=== PATIENT | female | born 1960 | race Caucasian/White ===

== ENCOUNTER 2016-03-19 18:10 | Emergency (ER) | payer SELFPAY ==
[2016-03-19] MEDS ORDERED: IOPAMIDOL 300 (61%) 150 ML VIAL IV ONE (18:11)
[2016-03-19 19:56] LABS: SPECIFIC GRAVITY 1.015 (1.001-1.030); URINE BILIRUBIN NEGATIVE (NEGATIVE); URINE BLOOD NEGATIVE (NEGATIVE); URINE GLUCOSE (UA) NEGATIVE (NEGATIVE); URINE LEUKOCYTE ESTERASE NEGATIVE (NEGATIVE); URINE NITRITE NEGATIVE (NEGATIVE); URINE PROTEIN NEGATIVE (NEGATIVE); URINE UROBILINOGEN NORMAL (0-1 mg/dl)
[2016-03-19 19:59] LABS: URINE APPEARANCE CLEAR; URINE COLOR YELLOW
[2016-03-19 20:00] LABS: HCG,QUALITATIVE URINE NEGATIVE
[2016-03-19 20:33] LABS: ABSOLUTE NEUTROPHIL COUNT 7.8 K/mm3 (1.8-7.7); BASO # 0.1 K/mm3 (0.0-0.2); BASO % 0.6 % (0.2-1.0); EOS # 0.6 (0.0-0.5); EOS % 4.4 % (0.9-2.9); HEMATOCRIT 42.9 % (37.0-47.0); HEMOGLOBIN 13.8 gm/l (12.0-16.0); IMM NEUT # 0.1 K/mm3 (0-0.2); IMM NEUT% 0.4 % (0-1); LYMPH # 3.6 (1.0-4.8); LYMPH % 27.3 % (15-45); MEAN CELL VOLUME 86.3 fl (81.0-99.0); MEAN CORPUSCULAR HEMOGLOBIN 27.8 pg (27.0-31.0); MEAN CORPUSCULAR HGB CONC 32.2 g/dl (33.0-37.0); MEAN PLATELET VOLUME 10.9 fl (7.4-10.4); MONO # 1.1 (0.0-0.8); MONO % 8.2 % (4-12); NEUT % 59.1 % (43-75); PLATELET COUNT 304 K/mm3 (130-400); RED CELL DISTRIBUTION WIDTH 13.5 % (11.5-14.5)
[2016-03-19 20:52] LABS: ALBUMIN 4.4 gm/dL (3.5-5.7); CALCIUM 10.3 mg/dL (8.6-10.3)
[2016-03-19] MEDS ORDERED: ONDANSETRON 4 MG ODT TAB ONE (22:06)
[2016-03-19] MEDS ORDERED: CIPROFLOXACIN 500 MG TABLET ONE (22:06)
[2016-03-19] MEDS ORDERED: METRONIDAZOLE 500 MG TABLET ONE (22:06)
--- NOTE | 2016-03-20 07:48 | CT ---
Exam Type: ABD/PELVIS W/ CON Date and Time: 03/19/2016 8:02 PM Clinical information: Suprapubic pain for 3 months. History of prior cholecystectomy and right ovarian cyst. Comparison: 11/16/2015 CT abdomen pelvis with contrast. Technique: Contiguous axial 4 mm images were obtained from the lung bases through the pelvis after the uneventful IV administration of 125 cc of [id number]. Sagittal and coronal reformations with high resolution lung algorithm images were also obtained at this time. CT DI: 24.9 DLP 1218.8 FINDINGS: Lung base :No abnormality is identified at the lung bases. Visualized heart:There is no pericardial effusion. LIVER: The patient's 3 hypodensities are again noted scattered throughout the liver unchanged from prior study entering upward 1.6 cm. Otherwise liver is unremarkable. BILE DUCTS: normal caliber. GALLBLADDER: Surgically absent PANCREAS: within normal limits. SPLEEN: within normal limits. ADRENALS: within normal limits. KIDNEYS: 9 mm hyperdense exophytic lesion is present along the inferior aspect of the lateral left kidney. This is fairly stable in comparison to prior study. Probable right upper pole cyst is also noted. Stomach and small BOWEL: Normal caliber. Large bowel: Air and stool are noted within the large bowel. Appendix is normal. Diverticulosis is again noted. There is a short segment of diverticulitis centered at the junction between the ascending colon and sigmoid colon. This measures approximately 4.1 cm in length on coronal image 32. No free air or abscess is present. Small amount of fluid tracks along the inferior aspect of the left colic gutter. LYMPH NODES: No enlarged mesenteric lymph nodes. PERITONEUM: no ascites or free air, no fluid collection. VESSELS: within normal limits RETROPERITONEUM: within normal limits. ABDOMINAL WALL: within normal limits. Bladder: Normal. Uterus and adnexa: Unremarkable. BONES: within normal limits. IMPRESSION: Short segment of diverticulitis is identified at the junction of the descending colon and sigmoid colon. While this likely represents a new incidence of the patient's disease, differential considerations could include incomplete resolution of prior episode of diverticulitis with flareup. This is thought to be less likely. Unchanged appearance to the patient's multiple liver and renal cyst. Ultrasound is recommended for follow-up as an outpatient, as noted on prior study. Other findings as above. Preliminary report was provided by [facility] at approximately 2146 hours on 03/20/2016.
== END 2016-03-19 22:21 | disposition home or self-care (01) ==
LOC: ED 18:10
DX: K57.92 Diverticulitis of intestine, part unspecified, without perforation or abscess without bleeding (principal); I10 Essential (primary) hypertension; J45.909 Unspecified asthma, uncomplicated